=== PATIENT | female | born 1970 | race Two or more races ===

== ENCOUNTER 2016-06-20 07:35 | Inpatient (IN) | payer OTHER ==
[~2016-06-20] VITALS: Ht 152.4 cm; Wt 69.9 kg
[2016-06-20] VITALS (11 sets, daily range): BP systolic 92–171; BP diastolic 50–102
[~2016-06-20 07:35] MED LIST: Dexamethasone 4mg/ml vial ONE; GEMFIBROZIL600 MG ORAL; Glycopyrrolate 0.2mg/ml 1ml Vial ONE; LISINOPRIL20 MG ORAL; LR 1000ml ONE; Lidocaine 1% MPF 10mg/ml 5ml ONE; Magnesium Sulfate 2ml Inj ONE; Metoprolol 5mg/5ml Inj ONE; Neostigmine 1mg/ml 10ml Inj ONE; Propofol 10mg/ml 20ml IV ONE; Zemuron 50mg/5ml Inj IV ONE; ceFAZolin sod 2 GM in D5W 110 ML IVPB ONE; fentaNYL 100 mcg/2 mL IV ONE; fentaNYL 250mcg/5ml ONE
--- NOTE | 2016-06-20 08:33 | Anethesia Preoperative Eval ---
Anesthesia Pre-op PMH/ROS General Date of Evaluation: Jun 20, 2016 Time of Evaluation: 10:21 Anesthesiologist: Robert ASA Score: ASA 3 Mallampati Score Class I : Soft palate, uvula, fauces, pillars visible Class II: Soft palate, uvula, fauces visible Class III: Soft palate, base of uvula visible Class IV: Only hard plate visible Mallampati Classification: Class II Surgeon: Dieudonne Diagnosis: Neck Pain Surgical Procedure: ADR C5-6 Anesthesia History: none Family History: no anesthesia problems Allergies: Coded Allergies: No Known Allergies (Unverified , 06/18/16) Medications: see eMAR Past Medical History Cardiovascular: Reports: HTN, other - HL Gastrointestinal/Genitourinary: Reports: GERD Neurologic/Psychiatric: Reports: depression/anxiety Endocrine: Reports: DM Other: obesity - BMI 30 PSxH Narrative: Breast Implants, L Arm Sx Anesthesia Pre-op Phys. Exam Physician Exam Last Vital Signs Date Time Temp Pulse Resp B/P Pulse Ox O2 Delivery O2 Flow Rate FiO2 06/20/16 08:16 97.4 81 18 138/87 98 Room Air Constitutional: NAD Neurologic: CN 2-12 intact Cardiovascular: RRR Respiratory: CTA Gastrointestinal: S/NT/ND Airway Exam Mallampati Score: Class II MO: limited ROM: limited Teeth: intact Anesthesia Pre-op A/P Risk Assessment & Plan Assessment: ASA 3 Plan: GA, BIS, Glidescope Status Change Before Surgery: No Pre-Antibiotics Dru Grams Ancef IV Given Within 1 Hr of Incision: Yes Time Given: 10:41 Reg Jones MD Jun 20, 2016 08:33
[2016-06-20] MEDS ORDERED: LR 1000ml 1,000 ML IVLG SCH (08:34)
--- NOTE | 2016-06-20 08:36 | Immediate Post-Op Evaluation ---
Immediate Post-Op Evalulation Immediate Post-Op Evalulation Procedure: ADR C5-6 Date of Evaluation: Jun 20, 2016 Time of Evaluation: 12:52 IV Fluids: 1100 LR Blood Products: 0 Estimated Blood Loss: 50 Urinary Output: 500 Blood Pressure Systolic: 92 Blood Pressure Diastolic: 58 Pulse Rate: 85 Respiratory Rate: 16 O2 Sat by Pulse Oximetry: 99 Temperature (Fahrenheit): 97.1 Pain Score (1-10): 3 Nausea: No Vomiting: No Complications 0 Patient Status: awake, reacts, patent, extubated, none Hydration Status: adequate Dru Grams Ancef IV Given Within 1 Hr of Incision: Yes Reg Jones MD Jun 20, 2016 08:36
[2016-06-20] MEDS ORDERED: DIURIL25 MG ORAL (08:44)
[2016-06-20] MEDS ORDERED: CARISOPRODOL350 MG ORAL (08:44)
[2016-06-20] MEDS ORDERED: MECLIZINE HCL25 M1 ORAL (08:44)
[2016-06-20] MEDS ORDERED: AMITRIPTYLINE25 MG ORAL (08:44)
[2016-06-20] MEDS ORDERED: VOLTAREN25 MG PO (08:44)
[2016-06-20] MEDS ORDERED: NORVASC5 MG ORAL (08:44)
[2016-06-20] MEDS ORDERED: FORTAMET500 MG PO (08:44)
[2016-06-20] MEDS ORDERED: Labetalol 5mg/ml 20ml vial IV PRN (08:45)
[2016-06-20] MEDS ORDERED: Hydromorphone 0.5mg/0.5ml inj IVP PRN (08:45)
[2016-06-20] MEDS ORDERED: Ketorolac 60mg Inj IV PRN (08:45)
[2016-06-20] MEDS ORDERED: Oxycodone/Acetaminophen 5-325 ORAL PRN (08:45)
[2016-06-20] MEDS ORDERED: Atropine Inj 1mg/10ml Syr IV PRN (08:45)
[2016-06-20] MEDS ORDERED: DiphenhydrAMINE 50mg/ml Inj IVP PRN (08:45)
[2016-06-20] MEDS ORDERED: Midazolam 2mg/2ml Inj IVP PRN (08:45)
[2016-06-20] MEDS ORDERED: Norco 7.5mg/325mg tab ORAL PRN ×3 (08:45→10:00)
[2016-06-20] MEDS ORDERED: LORazepam Inj 2mg/ml 1ml IV PRN (08:45)
[2016-06-20] MEDS ORDERED: Meperidine 25mg/ml Inj IV PRN (08:45)
[2016-06-20] MEDS ORDERED: fentaNYL 100 mcg/2 mL IV PRN (08:45)
[2016-06-20] MEDS ORDERED: Norco 5mg/325mg tab ORAL PRN ×2 (08:45→10:00)
[2016-06-20] MEDS ORDERED: Ketorolac 30mg Inj IV PRN (08:45)
[2016-06-20] MEDS ORDERED: Metoclopramide 10mg/2ml Inj IVP PRN ×2 (08:45→10:00)
[2016-06-20] MEDS ORDERED: Acetaminophen (Non formulary) 1,000 MG/100 ML ML IV ONE (09:30)
--- NOTE | 2016-06-20 09:56 | Pre-Procedure Note/Attestation ---
Pre-Procedure Note/Attestation Complete Prior to Procedure Planned Procedure: not applicable Procedure Narrative: Artificial disc replacement C56 Indications for Procedure Pre-Operative Diagnosis: herniated disc of C56 Attestation I attest that I discussed the nature of the procedure; its benefits; risks and complications; and alternatives (and the risks and benefits of such alternatives ), prior to the procedure, with the patient (or the patient's legal hvac sales representative). I attest that, if there was a reasonable possibility of needing a blood transfusion, the patient (or the patient's legal hvac sales representative) was given the [facility] standardized written summary, pursuant to the Alireza Jessica Blood Safety Act ([place] Health and Safety Code # 1645, as amended). I attest that I re-evaluated the patient just prior to the surgery and that there has been no change in the patient's H&P, except as documented below: RAQUEL PULIDO Jun 20, 2016 09:56
--- NOTE | 2016-06-20 09:57 | Brief Operative Note ---
Immediate Post Operative Note Operative Note Chief Complaint: neck pain left arm radic Pre-op Diagnosis: herniated disc of C56 Procedure: Artificial disc replacement C56 Post-op Diagnosis: same as pre-op Findings: consistent w/pre-op dx studies Surgeon: Dieudonne Piano Instructor: Tia Anesthesia: general Specimen: none Complications: none Condition: stable Estimated Blood Loss: minimal Implant(s) used?: Yes - Prodisc C sz5 RAQUEL PULIDO Jun 20, 2016 09:57
[2016-06-20] MEDS ORDERED: HYDROmorphone 1mg/ml Carpuject SUBQ PRN (10:00)
[2016-06-20] MEDS ORDERED: Naloxone 0.4mg/ml Inj IVP PRN (10:00)
[2016-06-20] MEDS ORDERED: Milk of Magnesia 30ml Ud ORAL PRN (10:00)
[2016-06-20] MEDS ORDERED: Vancomycin 1gm inj IVPB ONE (10:16)
[2016-06-20] MEDS ORDERED: Thrombin 5000 units TOPIC ONE (10:16)
[2016-06-20] MEDS ORDERED: Bacitracin 50000 Units Vial ONE (10:17)
[2016-06-20] MEDS: HYDROmorphone 1mg/ml Carpuject IVP PRN ×2 (16:15→21:13)
--- NOTE | 2016-06-20 17:01 | Diagnostic Imaging Report ---
Indications: Neck pain, artificial disc replacement Technique: Procedure including fluoroscopy performed by Dr. Bro. Portable intraoperative spot film images of cervical spine performed in AP and lateral projections. Findings: Comparison: None Initial image demonstrates tip of localizing needle overlying the anterior aspect of the C5-6 disc space. Subsequent images demonstrate placement of disc prosthesis within the same disc space, well centered. Prevertebral soft tissues at this level are mildly swollen. IMPRESSION: Surgical changes as described
[2016-06-20] MEDS: NS w/KCl 20mEq 1,000 ML IV SCH (17:53)
[2016-06-20] MEDS: ceFAZolin sod 1 GM in NS 55 ML IV SCH (17:54)
[2016-06-20] MEDS: Dexamethasone 4mg/ml vial IVP SCH (17:57)
[2016-06-20] MEDS: Docusate 100mg tablet ORAL SCH (17:57)
--- NOTE | 2016-06-20 20:54 | Consultation ---
History of Present Illness General Date patient seen: Jun 20, 2016 Time patient seen: 20:50 Chief Complaint: neck pain Referring physician: Liu Bro MD Reason for Consultation: medical management Present Illness HPI 46 y/o woman with hx of cervical stenosis, s/p C5/6 ADR without periop or postop complications. No chest pain or dyspnea, no n/v, postop pain well controlled. Allergies: Coded Allergies: No Known Allergies (Unverified , 06/18/16) Medication History Scheduled Amitriptyline HCl (Elavil*), 25 MG ORAL BEDTIME, (Reported) Amlodipine Besylate (Norvasc), 5 MG ORAL DAILY, (Reported) Carisoprodol* (Carisoprodol*), 350 MG ORAL PRN, (Reported) Diclofenac Sod (Diclofenac Sodium), 75 MG PO BID, (Reported) Gemfibrozil (Gemfibrozil*), 600 MG ORAL DAILY, (Reported) Hydrochlorothiazide (Hydrochlorothiazide), 25 MG ORAL DAILY, (Reported) Lisinopril (Lisinopril*), 20 MG ORAL DAILY, (Reported) Meclizine Hcl (Meclizine Hcl), 25 MG ORAL THREE TIMES A DAY, (Reported) Metformin Hcl (Fortamet), 500 MG PO DAILY, (Reported) Patient History History Provided By: Patient Healthcare decision maker LUIS FELIPE GARCIA- Resuscitation status Full Code Advanced Directive on File Past Medical/Surgical History Past Medical/Surgical History: (1) Diabetes type 2, controlled (2) HTN (hypertension) (3) HNP (herniated nucleus pulposus), cervical Family History Family History: (1) Family history in first degree relatives is unremarkable Social History Social History: (1) No significant social history Review of Systems ROS Narrative CONSTITUTIONAL: No weight loss, fever, chills, weakness or fatigue. HEENT: Eyes: No visual loss, blurred vision, double vision or yellow sclerae. Ears, Nose, Throat: No hearing loss, sneezing, congestion, runny nose or sore throat. SKIN: No rash or itching. CARDIOVASCULAR: No chest pain, chest pressure or chest discomfort. No palpitations or edema. RESPIRATORY: No shortness of breath, cough or sputum. GASTROINTESTINAL: No anorexia, nausea, vomiting or diarrhea. No abdominal pain or blood. NEUROLOGICAL: No headache, dizziness, syncope, paralysis, ataxia, numbness or tingling in the extremities. No change in bowel or bladder control. MUSCULOSKELETAL: No muscle, back pain, joint pain or stiffness. +neck pain HEMATOLOGIC: No anemia, bleeding or bruising. LYMPHATICS: No enlarged nodes. No history of splenectomy. PSYCHIATRIC: No history of depression or anxiety. ENDOCRINOLOGIC: No reports of sweating, cold or heat intolerance. No polyuria or polydipsia. ALLERGIES: No history of asthma, hives, eczema or rhinitis. Physical Exam Physical Exam Narrative General: alert, cooperative, no distress, appears stated age Head: normocephalic, without obvious abnormality, atraumatic Eyes: conjunctivae/corneas clear. PERRL, EOM's intact Throat: lips, mucosa, and tongue normal. MMM Neck: incision c/d/i Lungs: clear to auscultation bilaterally Heart: regular rate and rhythm, S1, S2 normal, no murmur, click, rub or gallop Abdomen: soft, non-tender, non-distended, bowel sounds normal; no masses or organomegaly Extremities: extremities normal, atraumatic, no cyanosis or edema Pulses: 2+ and symmetric Skin: skin color, texture, turgor normal; no rashes or lesions Neurologic: grossly normal, no focal deficits Last 24 Hour Vital Signs Date Time Temp Pulse Resp B/P Pulse Ox O2 Delivery O2 Flow Rate FiO2 06/20/16 16:00 96.8 84 18 125/82 96 Nasal Cannula 2.0 06/20/16 13:54 98.0 70 20 146/84 100 Nasal Cannula 2.0 06/20/16 13:45 74 20 154/98 100 Nasal Cannula 2.0 06/20/16 13:34 76 20 171/102 100 Nasal Cannula 2.0 06/20/16 13:34 76 171/102 06/20/16 13:15 70 20 161/99 100 Simple Mask 8.0 06/20/16 13:00 73 20 124/79 99 Simple Mask 8.0 06/20/16 12:51 72 20 103/60 98 Simple Mask 8.0 06/20/16 12:46 78 20 99/50 95 Simple Mask 8.0 06/20/16 12:42 85 16 99 06/20/16 12:41 97.1 78 20 92/58 95 Simple Mask 8.0 06/20/16 09:30 97.1 06/20/16 08:16 97.4 81 18 138/87 98 Room Air Height (Feet): 5 Height (Inches): 0.00 Weight (Pounds): 154 Medications Current Medications Medications (Trade) Dose Ordered Sig/Kareen Route PRN Reason Start Time Stop Time Status Last Admin Dose Admin Acetaminophen (Tylenol) 650 mg Q4H PRN ORAL headache or temp>101 06/20/16 10:00 07/20/16 09:59 Acetaminophen/ Hydrocodone Bitart ([place] 5/325) 1 tab Q3H PRN ORAL pain score 1-3 06/20/16 10:00 06/27/16 09:59 Acetaminophen/ Hydrocodone Bitart ([place] 7.5/325) 1 ea Q3H PRN ORAL pain score 4-6 06/20/16 10:00 06/27/16 09:59 Acetaminophen/ Hydrocodone Bitart ([place] 7.5/325) 2 ea Q3H PRN ORAL pain scale 7-10 06/20/16 10:00 06/27/16 09:59 Amitriptyline HCl (Elavil) 25 mg BEDTIME ORAL 06/20/16 21:00 07/20/16 20:59 Amlodipine Besylate (Norvasc) 5 mg DAILY ORAL 06/21/16 09:00 07/21/16 08:59 Carisoprodol (Soma) 350 mg TIDPRN PRN ORAL SPASM 06/20/16 10:00 07/20/16 09:59 Cefazolin Sodium/ Sodium Chloride (Ancef/Sodium Chloride) 55 ml @ 110 mls/hr Q8H IV 06/20/16 18:30 06/21/16 10:59 06/20/16 17:54 Dexamethasone Sodium Phosphate (Decadron 4mg/ml vial) 4 mg Q6HR IVP 06/20/16 18:00 06/21/16 12:01 06/20/16 17:57 Dextrose (Dextrose 50%) STAT PRN IV Hypoglycemia 06/20/16 19:15 07/20/16 19:14 Docusate Sodium (Colace) 100 mg TWICE A DAY ORAL 06/20/16 18:00 07/20/16 17:59 06/20/16 17:57 Gemfibrozil (Lopid) 600 mg DAILY ORAL 06/20/16 21:00 07/20/16 20:59 Hydrochlorothiazide (Hydrodiuril) 25 mg DAILY ORAL 06/21/16 09:00 07/21/16 08:59 Hydromorphone HCl (Dilaudid) 1 mg Q4H PRN SUBQ Mild Pain (Pain Scale 1-3) 06/20/16 10:00 06/27/16 09:59 Hydromorphone HCl (Dilaudid) 2 mg Q3H PRN SUBQ Severe Pain (Pain Scale 7-10) 06/20/16 10:00 06/27/16 09:59 Hydromorphone HCl (Dilaudid) 2 mg Q4H PRN SUBQ Moderate Pain (Pain Scale 4-6) 06/20/16 10:00 06/27/16 09:59 Hydromorphone HCl 1 mg 1 mg Q2H PRN IVP Breakthrough Pain 06/20/16 10:00 06/27/16 09:59 06/20/16 16:15 Insulin Aspart (NovoLOG) BEFORE MEALS AND HS SUBQ 06/20/16 21:00 07/20/16 20:59 Lisinopril (Prinivil) 20 mg DAILY ORAL 06/21/16 09:00 07/21/16 08:59 Magnesium Hydroxide (Mom) 30 ml QIDPRN PRN ORAL Constipation 06/20/16 10:00 07/20/16 09:59 Metoclopramide HCl (Reglan) 10 mg Q6H PRN IVP Nausea & Vomiting 06/20/16 10:00 07/20/16 09:59 06/20/16 17:59 Naloxone HCl (Narcan) 0.1 mg PRN PRN IVP RR<12/min, pt unarousable 06/20/16 10:00 07/20/16 09:59 Ondansetron HCl (Zofran) 4 mg Q6H PRN IVP Nausea & Vomiting 06/20/16 10:00 07/20/16 09:59 06/20/16 16:15 Prochlorperazine (Compazine) 10 mg Q6H PRN IVP Nausea & Vomiting 06/20/16 10:00 07/20/16 09:59 Sodium Chloride (NS w/KCl 20mEq) 1,000 ml @ 100 mls/hr Q10H IV 06/20/16 17:00 07/20/16 16:59 06/20/16 17:53 Temazepam (Restoril) 15 mg HSPRN PRN ORAL Insomnia 06/20/16 10:00 06/27/16 09:59 Assessment/Plan Problem List: (1) HNP (herniated nucleus pulposus), cervical Assessment & Plan: - s/p C5/6 ADR - encourage mobilization/ambulation - encourage incentive spirometry to optimize pulmonary hygiene - DVT/GI prophylaxis as appropriate - ctm CBC and hemodynamics - ctm electrolytes, adjust/replete prn - PT/OT/ST, if indicated - pain control, supportive care, bowel regimen - DC planning ICD Codes: M50.20 - Other cervical disc displacement, unspecified cervical region SNOMED: [id number] BE JOHNSON Jun 20, 2016 20:54
[2016-06-20] MEDS: NovoLOG Insulin Flexpen SUBQ SCH (22:43)
[2016-06-21] VITALS: BP 113/77
[2016-06-21] MEDS: Dexamethasone 4mg/ml vial IVP SCH ×3 (00:11→11:54)
[2016-06-21 04:00] VITALS: BP 109/68
[2016-06-21] MEDS: ceFAZolin sod 1 GM in NS 55 ML IV SCH ×2 (04:13→10:30)
[2016-06-21] MEDS: NS w/KCl 20mEq 1,000 ML IV SCH (04:14)
[2016-06-21] MEDS: NovoLOG Insulin Flexpen SUBQ SCH ×2 (07:18→12:03)
[2016-06-21 08:00] VITALS: BP 143/86
--- NOTE | 2016-06-21 08:19 | 48 Hour Post Anesthesia Eval ---
Post Anesthesia Evaluation Procedure: ADR C5-6 Date of Evaluation: Jun 21, 2016 Time of Evaluation: 06:30 Blood Pressure Systolic: 109 0: 68 Pulse Rate: 88 Respiratory Rate: 18 Temperature (Fahrenheit): 97.9 O2 Sat by Pulse Oximetry: 95 Airway: patent Nausea: No Vomiting: No Pain Intensity: 2 Hydration Status: adequate Cardiopulmonary Status: at baseline Mental Status/LOC: patient returned to baseline Post-Anesthesia Complications: 0 Follow-up care needed: N/A - further care as per primary team MISSAEL SIU M.D. Jun 21, 2016 08:19
[2016-06-21] MEDS: Docusate 100mg tablet ORAL SCH (08:54)
[2016-06-21] MEDS ORDERED: Lisinopril 20mg tab ORAL SCH (09:00)
[2016-06-21] MEDS ORDERED: Tubing IV Secondary IV ONE (10:01)
[2016-06-21 12:02] VITALS: BP 129/10
--- NOTE | 2016-06-21 12:07 | Discharge Summary ---
Discharge Summary Hospital Course Date of Admission Jun 20, 2016 at 07:35 Date of Discharge Jun 21, 2016 Admitting Diagnosis Cervical spine stenosis Reason for Hospitalization: cervical spine surgery HPI Alma Mercado is a 46 year old female who was admitted on Jun 20, 2016 at 07: 35 for Cervical Herniated Disc Consultations Spine surgery Procedures See operative reports Hospital Course 46 y/o female with hx of cervical spine stenosis s/p cervical spine surgery without complications. once pain controlled and able to ambulate was dced home and will f/u with Dr. Bro in a week Discharge Medications Continued Medications: Amitriptyline HCl (Elavil*) 25 Mg Tablet 25 MG ORAL BEDTIME, TAB Amlodipine Besylate (Norvasc) 5 Mg Tablet 5 MG ORAL DAILY, TAB Carisoprodol* (Carisoprodol*) 350 Mg Tablet 350 MG ORAL PRN, TAB Diclofenac Sod (Diclofenac Sodium) 25 Mg Tablet.dr 75 MG PO BID, TAB Gemfibrozil (Gemfibrozil*) 600 Mg Tablet 600 MG ORAL DAILY, TAB 0 Refills Hydrochlorothiazide (Hydrochlorothiazide) 50 Mg Tablet 25 MG ORAL DAILY, #10 TAB 0 Refills Lisinopril (Lisinopril*) 20 Mg Tablet 20 MG ORAL DAILY, TAB Meclizine Hcl (Meclizine Hcl) 25 Mg Tab.chew 25 MG ORAL THREE TIMES A DAY, TAB Metformin Hcl (Fortamet) 500 Mg Tab.er.24 500 MG PO DAILY, TAB Discharge Condition Upon Discharge: stable Discharge Disposition Patient was discharged to Home (01) Discharge Diagnoses: (1) HNP (herniated nucleus pulposus), cervical (2) Diabetes type 2, controlled (3) HTN (hypertension) BE JOHNSON Jun 21, 2016 12:07
--- NOTE | 2016-06-21 21:08 | Operative Note - Dictated ---
DATE OF OPERATION: 06/20/2016 SURGEON: Liu Bro MD, orthopedic spine surgeon. E[employer]MENT[employer] SCHOOL COUNSELOR SURGEON: Mervin Weber M.D. PREOPERATIVE DIAGNOSES: 1. Intractable neck pain. 2. Radiculopathy. 3. Herniation, C5-C6. 4. Neural foraminal stenosis C5-C6. 5. Stenosis. POSTOPERATIVE DIAGNOSES: 1. Intractable neck pain. 2. Radiculopathy. 3. Herniation, C5-C6. 4. Neural foraminal stenosis C5-C6. 5. Stenosis. PROCEDURES PERFORMED: 1. Anterior cervical discectomy and artificial disc replacement of C5-C6 using a Synthes Prodisc C size 5 height. 2. Use of intraoperative microscope. 3. Motor evoked potential monitoring. 4. Somatosensory evoked potential monitoring. 5. Supervision and interpretation of fluoroscopy. COMPLICATIONS: None. ANESTHESIA: General. ESTIMATED BLOOD LOSS: Less than 100 mL. INDICATIONS FOR SURGERY: This patient is a 46-year-old female who has a history of diagnoses as listed above. As of result of this, the patient sustained intractable neck pain, radiculopathy, herniation, C5-C6, neural foraminal stenosis C5-C6 and stenosis. We tried a course of conservative management but despite this course there was still a significant component of persistent, recalcitrant neck pain and arm pain. The MRI demonstrated significant neural foraminal compromise secondary to disc herniations at C5-C6. We had a long discussion with Alma regarding the risks and benefits of surgery. Our discussion included but was not limited to nonoperative management, chiropractic management, another epidural steroid injection as well definitive management in the form of surgery. We recommended anterior cervical discectomy and artificial disk replacement of C5-C6 using a Synthes Prodisc C size 5 height as final definitive management. We reviewed the risks and benefits of surgery with the patient. Our discussion included a comprehensive review of the clinical issues and the nature of the clinical decision. We reviewed the alternatives, including doing nothing. The patient elected to proceed accordingly with anterior cervical discectomy and artificial disk replacement of C5-C6 using a Synthes Prodisc C size 5 height. We had a long discussion regarding the risks, alternatives and benefits of surgery. Our description of the risks included a discussion in person as well as a signed consent which detailed all pertinent risks from the procedure itself. Briefly, our discussion included but was not limited to infection, bleeding, pseudarthrosis, spinal cord injury, neurovascular injury, dural tear, CSF leak, neuropathy, paralysis, permanent weakness/drop foot/drop arm, paresthesias, blindness, palsy and weakness. The patient understood there may be a need for a revision surgery or additional procedures. Approach-related complications including dysphonia, dysphagia, blindness, permanent vocal cord and neural injury, hematoma, swallowing and breathing difficulty. Medical complications were reviewed including liver, kidney, shock, cardiopulmonary failure, anesthesia complications including , swelling, damage to the musculature, larynx/voice injury or loss, esophagus/throat, trachea, blood vessels and muscles/muscular sprain and lungs/pneumothorax during this surgical procedure; injury to deeper structures may be temporary or permanent. After this review of risks, the patient understood these and elected to proceed. A written and verbal consent was given. We discussed the pros and cons of all the alternatives. We discussed the uncertainties associated with the decision. Afterwards I assessed the patient's understanding and explored their preferences. All questions were answered and no guarantees were given. Medical clearance was obtained prior to surgery. INTRAOPERATIVE FINDINGS: A broad based disc herniation which was found posterior to a tear/rent in the posterior longitudinal ligament at C5-C6 causing a considerable amount of neural foraminal stenosis with significant encroachment on the neural foramina and spinal cord. DESCRIPTION OF PROCEDURE: Under the benefit of general endotracheal anesthesia and with the assistance of the entire operative team, the patient was moved from the [place] onto the operative table in the supine position. The head was secured and carefully positioned appropriately. Bilateral arms were secured with GelPads and foam and all bony prominences were padded. For the bilateral lower extremities SCD and ANNA hose were placed for DVT prophylaxis. A surgical timeout was called which corroborated our planned procedure of anterior cervical discectomy and artificial disc replacement of C5-C6 using a Synthes Prodisc C size 5. Preoperative antibiotics were administered within 30 minutes of the incision for antibiotic prophylaxis. Using lateral fluoroscopic radiography, the operative levels were delineated. Next the wound was prepped and draped with Chlorhexidine and sterile drapes. An incision was based on lateral fluoroscopy and we centered our incision at the C5-C6 interspace and next using a standard Angel-Clarke anterior based approach the incision was taken down through the skin and subcutaneous tissues until the vertebral bodies and their corresponding disc spaces were visualized. A needle was placed into the interspace to confirm placement of the operative interspace and we performed the remainder of procedure under microscopic visualization. Next, using a bipolar and Bovie cautery to ensure meticulous hemostasis, the longus colli was mobilized bilaterally and retractors were placed deep to the longus colli bilaterally to address retraction. Next we turned our attention to the radical anterior discectomy. This was initially performed at C5-C6. First by using a 15 blade scalpel followed by narrow pituitaries and a Microsect 5-B curette was used to denude the endplate of all cartilaginous tissue. Next using a [employer] AM8 drillbit the endplates were denuded of cartillage in a layer by layer fashion, and ultimately the posterior uncinate joints bilaterally and posterior osteophytic lips and margins causing central and lateral impingement were carefully denuded until visualization of the posterior longitudinal ligament was possible. An endplate preparation was performed in the exact same fashion using an intervertebral obiee consultant, sequential distraction was obtained throughout the disc space. We saw a tear/rent in the PLL and this was carefully mobilized and dissected using a Microsect 1-B curet until we visualized a broad-based disc herniation with compression of the spinal cord as well as neural foramina right more than left-sided. This neural foraminal compression was carefully resected using a Kerrison-1 and Kerrison-2 rongeurs until complete decompression of the spinal cord was visualized and complete decompression of the neural foramina and nerve root therein as well as the axilla and lateral margin of the nerve root was visualized and subsequently completely decompressed. The family was notified at one hour intervals throughout the procedure to provide for consistent updates. We next turned our attention towards trialing our implant within the disc space. We initially tried size 5 and the Prodisc Cervical spacer fit well in regards to depth and width. This implant was opened and prepared. Next under direct visualization I confirmed excellent fit in respect to the anterior and posterior vertebral bodies, the uncinate joints and in regards to toggle. Once satisfied with this placement on serial AP and lateral fluoroscopy I turned my attention towards cutting our stephy. These were cut in the bones using a reciprocating drill and afterwards all free fragments of bone were irrigated. Next FloSeal was placed into the interspace and the implant was inserted using fluoroscopic guidance. Next the Synthes Prodisc C size 5 ADR was then carefully advanced and secured into the intervertebral space under direct visualization and with supervision of AP and lateral fluoroscopic views. After a finger sweep we confirmed removal of all sponges. The retractor was removed and we next turned our attention to meticulous hemostasis with FloSeal and bipolar cautery. After the sponge and needle count was again found to be correct with our second count, we next turned our attention to closure. The wound was again copiously irrigated with antibiotic impregnated saline. Closure consisted of 4-0 clear nylon for the platysma, and 6-0 clear nylon for the superficial skin. Final skin closure and dressings consisted of Dermabond. Prior to final closure, a final radiograph was obtained which demonstrated the hardware is intact with excellent position throughout. The patient tolerated the procedure well. The patient was carefully extubated after the conclusion of surgery. We discussed the findings of the surgery with the family upon completion of the case. At this point the patient was transferred to the spine floor for further observation. Liu Bro M.D. DR: KAYLAH JOB#: [id number] CC: PIPO
--- NOTE | 2016-06-22 02:58 | Discharge Summary ---
DATE OF ADMISSION: 06/20/2016 DATE OF DISCHARGE: 06/21/2016 PROCEDURE PERFORMED DURING ADMISSION: Artificial disk replacement of C56. REASON FOR ADMISSION: C5-C6 herniation. HOSPITAL COURSE/TREATMENT RENDERED: DISCHARGE PHYSICAL EXAM: 1. Patient was ambulating with and without the assistance of physical therapy 2. Prior to discharge home incision was clean and dry with minimal swelling 3. Follows commands 4. Alert and oriented 5. Hernandez discontinued, voiding 6. Incentive spirometer at bedside 7. IVF hep locked MOTOR: Demonstrates expected postoperative bulk and tone. Moves biceps, triceps, and deltoid musculature on command. Moves hip flexors, quadriceps, tibialis anterior, EHL, gastrocsoleus musculature on command as well. TREATMENT RENDERED: 1. Daily nursing care 2. Physical Therapy 3. Occupational Therapy 4. Intravenous medications 5. Oral medications 6. Daily postoperative examinations by Spine surgery team CONDITION OF PATIENT ON DISCHARGE: The condition on discharge is stable for discharge to home DISCHARGE INSTRUCTIONS: Our specific instructions relating to physical activity, medications diet and follow-up care are detailed in our standard operative folder and were given to this patient prior to surgery. We will however summarize these briefly as stated below. Regarding physical activity we would like the patient to limit their flexion, extension and rotation. We also require a limitation on their bending lifting and twisting. All medication has been called in prior to surgery to their pharmacy of choice. They can resume their regular diet once tolerated. We would like them to shower and limit soaking the wound in a tub/Jacuzzi/the ocean for a period of one month or until the incision is completely healed. We will have them follow up in our office in three weeks time for their regularly scheduled appointment. They understand to call our office tomorrow to schedule the time for their three week followup appointment. The patient will notify us should they experience any increase in the severity of pain, redness/swelling/ or drainage from their incision. Liu Bro M.D. DR: Julio César JOB#: [id number] CC: PIPO
== END 2016-06-21 15:19 | disposition home or self-care (01) | DRG 518 ==
LOC: SDSOVERFLO 07:35 → 3E 14:00
PROC: 0RB30ZZ Excision of Cervical Vertebral Disc, Open Approach (ICD-10-PCS; principal; 2016-06-20 11:00)
PROC: 01N10ZZ Release Cervical Nerve, Open Approach (ICD-10-PCS; principal; 2016-06-20 11:00)
PROC: 0RR30JZ Replacement of Cervical Vertebral Disc with Synthetic Substitute, Open Approach (ICD-10-PCS; principal; 2016-06-20 11:00)
DX: M50.122 Cervical disc disorder at C5-C6 level with radiculopathy (principal); M48.02 Spinal stenosis, cervical region; I10 Essential (primary) hypertension; E78.5 Hyperlipidemia, unspecified; F41.9 Anxiety disorder, unspecified; V89.2XXS Person injured in unspecified motor-vehicle accident, traffic, sequela
CPT/HCPCS: 36415; 72040; 76000; 82962; 86850; 86900; 86901; 87081; 94003; 94150; J1815; J2405; J2710; J2765

== ENCOUNTER 2020-01-27 05:14 | Inpatient (IN) | payer OTHER ==
[~2020-01-27] VITALS: Ht 144.8 cm; Wt 72.6 kg
[2020-01-27] VITALS (10 sets, daily range): BP systolic 145–166; BP diastolic 75–99
[~2020-01-27 05:14] MED LIST changes: +AMITRIPTYLINE25 MG ORAL; +ATORVASTATIN CA40 MG ORAL; +CARISOPRODOL350 MG ORAL; +CARVEDILOL3.125 MG ORAL; +CATAPRES0.2 MG ORAL; +DIURIL25 MG ORAL; +DOCUSATE SODIU100 MG ORAL; -Dexamethasone 4mg/ml vial ONE; +FORTAMET500 MG PO; +GLIMEPIRIDE1 MG ORAL; -Glycopyrrolate 0.2mg/ml 1ml Vial ONE; +KLONOPIN1 MG ORAL; -LR 1000ml ONE; -Lidocaine 1% MPF 10mg/ml 5ml ONE; +MECLIZINE HCL25 M1 ORAL; -Magnesium Sulfate 2ml Inj ONE; -Metoprolol 5mg/5ml Inj ONE; +NESINA6.25 MG PO; +NORVASC5 MG ORAL; +NUCYNTA50 MG PO; -Neostigmine 1mg/ml 10ml Inj ONE; +PANTOPRAZOLE SO40 MG ORAL; -Propofol 10mg/ml 20ml IV ONE; +QUETIAPINE FUMA50 MG ORAL; +SERTRALINE HCL100 MG PO; +VOLTAREN25 MG PO; -Zemuron 50mg/5ml Inj IV ONE; -ceFAZolin sod 2 GM in D5W 110 ML IVPB ONE; -fentaNYL 100 mcg/2 mL IV ONE; -fentaNYL 250mcg/5ml ONE
[2020-01-27] MEDS ORDERED: Thrombin 5000 units TOPIC ONE (06:46)
[2020-01-27] MEDS ORDERED: Bacitracin 50000 Units Vial ONE (06:47)
[2020-01-27] MEDS ORDERED: Gelfoam Size TOPIC ONE (06:47)
--- NOTE | 2020-01-27 06:50 | Anethesia Preoperative Eval ---
Anesthesia Pre-op PMH/ROS General Date of Evaluation: Jan 27, 2020 Time of Evaluation: 07:06 Anesthesiologist: Robert ASA Score: ASA 3 Mallampati Score Class I : Soft palate, uvula, fauces, pillars visible Class II: Soft palate, uvula, fauces visible Class III: Soft palate, base of uvula visible Class IV: Only hard plate visible Mallampati Classification: Class II Surgeon: Dieudonne Diagnosis: Neck Pain Surgical Procedure: ACDF C4-5 Anesthesia History: none Social History: drug use - Chronic Pain Family History: no anesthesia problems Allergies: Coded Allergies: MORPHINE (Verified Adverse Reaction, Intermediate, headache, 01/26/20) Medications: see eMAR Patient NPO?: Yes Past Medical History Cardiovascular: Reports: HTN, other - HL Gastrointestinal/Genitourinary: Reports: GERD Neurologic/Psychiatric: Reports: depression/anxiety Endocrine: Reports: DM PSxH Narrative: Neck SX, L Hand and Arm SX, Breast Implants Anesthesia Pre-op Phys. Exam Physician Exam Last Vital Signs Date Time Temp Pulse Resp B/P (MAP) Pulse Ox O2 Delivery O2 Flow Rate FiO2 01/27/20 06:02 97.1 79 18 150/95 (113) 96 Constitutional: NAD Neurologic: CN 2-12 intact Cardiovascular: RRR Respiratory: CTA Gastrointestinal: S/NT/ND Airway Exam Mallampati Score: Class II MO: full ROM: limited Teeth: missing, intact Anesthesia Pre-op A/P Labs Chemistry Test 01/27/20 05:50 POC Whole Blood Glucose 130 MG/DL (74-106) H Risk Assessment & Plan Assessment: ASA 3 Plan: GA, SED, GlideScope Status Change Before Surgery: No Pre-Antibiotics Dru Grams Ancef IV Given Within 1 Hr of Incision: Yes Time Given: 07:31 Reg Jones MD Jan 27, 2020 06:50
[2020-01-27] MEDS ORDERED: Sodium Chloride 10ml vial INJ ONE (06:51)
[2020-01-27] MEDS ORDERED: Lidocaine 1% Plain 30 ml INJ ONE ×2 (06:51→08:45)
[2020-01-27] MEDS ORDERED: Lidocaine 1% MPF 10mg/ml 5ml ONE (06:51)
[2020-01-27] MEDS ORDERED: Rocuronium Bromide 50mg/5ml Inj IV ONE (06:55)
[2020-01-27] MEDS ORDERED: Acetaminophen (Non formulary) 100 ML IV ONE (07:00)
[2020-01-27] MEDS ORDERED: ceFAZolin sod 2 GM in NS 55 ML IVPB ONE (07:00)
[2020-01-27] MEDS ORDERED: Labetalol 5mg/ml 20ml vial IV PRN (07:00)
[2020-01-27] MEDS ORDERED: Metoclopramide 10mg/2ml Inj IVP PRN ×2 (07:00→07:30)
[2020-01-27] MEDS ORDERED: fentaNYL 100 mcg/2 mL IV PRN (07:00)
[2020-01-27] MEDS ORDERED: DiphenhydrAMINE 50mg/ml Inj IVP PRN (07:00)
[2020-01-27] MEDS ORDERED: Meperidine 25mg/1ml Inj (FOR RIGORS ONLY) IV PRN (07:00)
[2020-01-27] MEDS ORDERED: LR 1000ml ONE (07:00)
[2020-01-27] MEDS ORDERED: Midazolam 2mg/2ml Inj IVP PRN (07:00)
[2020-01-27] MEDS ORDERED: Atropine Sulfate 0.4mg/ml inj IVP PRN (07:00)
[2020-01-27] MEDS ORDERED: LORazepam Inj 2mg/ml 1ml IV PRN (07:00)
[2020-01-27] MEDS ORDERED: LR 1000ml 1,000 ML IVLG SCH (07:00)
[2020-01-27] MEDS ORDERED: Hydromorphone 0.5mg/0.5ml inj IVP PRN (07:00)
[2020-01-27] MEDS ORDERED: oxyCODONE HCL/Acetaminophen 5/325mg ORAL PRN (07:00)
[2020-01-27] MEDS ORDERED: NS Irrig 1000ml ONE (07:00)
[2020-01-27] MEDS ORDERED: HYDROcodone/Acetamin 7.5/325 tab ORAL PRN ×3 (07:00→07:30)
[2020-01-27] MEDS ORDERED: propofoL 1,000mg/100ml IV ONE (07:00)
[2020-01-27] MEDS ORDERED: Sterile Water Irrig 1000ml IRRIG ONE (07:00)
[2020-01-27] MEDS ORDERED: HYDROcodone/Acetamin 5/325 tab ORAL PRN ×2 (07:00→07:30)
[2020-01-27] MEDS ORDERED: Ketorolac 30mg Inj IV PRN ×2 (07:00)
--- NOTE | 2020-01-27 07:17 | Pre-Procedure Note/Attestation ---
Pre-Procedure Note/Attestation Complete Prior to Procedure Planned Procedure: not applicable Procedure Narrative: cervical 45 anterior cervical discectomy and fusion Indications for Procedure Pre-Operative Diagnosis: C45 herniation Attestation I attest that I discussed the nature of the procedure; its benefits; risks and complications; and alternatives (and the risks and benefits of such alternatives), prior to the procedure, with the patient (or the patient's legal financial services sales representative). I attest that, if there was a reasonable possibility of needing a blood transfusion, the patient (or the patient's legal financial services sales representative) was given the [facility] standardized written summary, pursuant to the Alireza Jessica Blood Safety Act ([place] Health and Safety Code # 1645, as amended). I attest that I re-evaluated the patient just prior to the surgery and that there has been no change in the patient's H&P, except as documented below: Liu Bro MD Jan 27, 2020 07:17
--- NOTE | 2020-01-27 07:18 | Brief Operative Note ---
Immediate Post Operative Note Operative Note Chief Complaint: neck pain and radiculopathy Pre-op Diagnosis: C45 herniation Procedure: cervical 45 anterior cervical discectomy and fusion Post-op Diagnosis: same as pre-op Findings: consistent w/pre-op dx studies Surgeon: Dieudonne Kinesiologist: Get Anesthesiologist: Robert Anesthesia: general Specimen: none Complications: none Condition: stable Fluids: IVF Estimated Blood Loss: minimal Drains: none Implant(s) used?: Yes - nuvasive interlock c sz 5 screws 13mmx3 osteocell 1cc Liu Bro MD Jan 27, 2020 07:18
[2020-01-27] MEDS ORDERED: HYDROmorphone 1mg/ml Carpuject SUBQ PRN (07:30)
[2020-01-27] MEDS ORDERED: Chloraseptic Spray 20mL Bottle ORAL PRN (07:30)
[2020-01-27] MEDS ORDERED: Naloxone 0.4mg/ml Inj IVP PRN (07:30)
[2020-01-27] MEDS ORDERED: HYDROmorphone 1mg/ml Carpuject IVP PRN (07:30)
[2020-01-27] MEDS ORDERED: Milk of Magnesia 30ml Ud ORAL PRN (07:30)
[2020-01-27] MEDS ORDERED: Phenylephrine 10mg/ml Vial ONE (07:40)
[2020-01-27] MEDS ORDERED: fentaNYL 100 mcg/2 mL IV ONE (08:42)
[2020-01-27] MEDS ORDERED: Glycopyrrolate 0.2mg/ml 1ml Vial ONE (08:49)
--- NOTE | 2020-01-27 08:56 | Immediate Post-Op Evaluation ---
Immediate Post-Op Evalulation Immediate Post-Op Evalulation Procedure: ACDF C4-5 Date of Evaluation: Jan 27, 2020 Time of Evaluation: 09:45 IV Fluids: 1000 LR Blood Products: 0 Estimated Blood Loss: 50 Urinary Output: 0 Blood Pressure Systolic: 155 Blood Pressure Diastolic: 93 Pulse Rate: 98 Respiratory Rate: 16 O2 Sat by Pulse Oximetry: 95 Temperature (Fahrenheit): 97 Pain Score (1-10): 2 Nausea: No Vomiting: No Complications 0 Patient Status: awake, reacts, patent, extubated, none Hydration Status: adequate Dru Grams Ancef IV Given Within 1 Hr of Incision: Yes Time Given: 07:31 Reg Jones MD Jan 27, 2020 08:56
--- NOTE | 2020-01-27 08:57 | 48 Hour Post Anesthesia Eval ---
Post Anesthesia Evaluation Procedure: ACDF C4-5 Date of Evaluation: Jan 27, 2020 Time of Evaluation: 12:23 Blood Pressure Systolic: 145 0: 64 Pulse Rate: 84 Respiratory Rate: 18 Temperature (Fahrenheit): 98 O2 Sat by Pulse Oximetry: 97 Airway: patent Nausea: No Vomiting: No Pain Intensity: 2 Hydration Status: adequate Cardiopulmonary Status: Stable Mental Status/LOC: patient returned to baseline Follow-up Care/Observations: 0 Post-Anesthesia Complications: 0 Follow-up care needed: ready to discharge Reg Jones MD Jan 27, 2020 08:57
--- NOTE | 2020-01-27 11:00 | NUR ---
NURSE NOTES: Pt arrived to the floor via hospital bed , pt awake a/oX4, breaths regular unlabored on 2 NC, pt denies any pain at this time . pt has IVF on the Left hand , intact patent asymptomatic, bilateral SCD on , surgical dressing on the anterior neck , Dermabond and open to air, neural checks done and intact pt able to wiggle toes and fingers. Pt has no belongings, taken by family member , bed in low locked position, side rails upX3 , will continue to monitor
[2020-01-27] MEDS ORDERED: NS w/KCl 20mEq 1000ml 1,000 ML IV SCH (13:00)
--- NOTE | 2020-01-27 13:40 | NUR ---
PT EVALUATION NOTE Patient seen for initial evaluation. Patient is familiar with cervical spine precautions and log roll technique from previous cervical surgery. Patient is independent/supervised for all functional mobility without an AD. Skilled inpatient PT intervention not warranted, patient discharged from PT, Cathy ALVARADO notified. Addendum: 01/27/20 at 1422 by ISABELLA FARAH PT Amended: Links added.
--- NOTE | 2020-01-27 14:44 | Diagnostic Imaging Report ---
CLINICAL HISTORY: Neck pain. Fluoroscopic imaging from spinal surgery. FINDINGS: Fluoroscopy independent procedure performed for spinal surgery. 8.2 seconds of fluoroscopy time utilized by the ordering physician. Total cumulative dose is 0.7 mGy and 0.64926 mGy*m2. Total of 3 spot images are obtained. IMPRESSION: FLUOROSCOPIC IMAGING FROM SPINAL SURGERY. PLEASE SEE OPERATIVE REPORT.
--- NOTE | 2020-01-27 14:47 | Diagnostic Imaging Report ---
Indication: Neck and arm pain. Status post spinal surgery. Technique: Portable frontal and lateral views of the cervical spine Comparison: No prior diagnostic cervical spine radiographs available for comparison. Findings: There is evidence of prior surgery with artificial disc prosthesis C5-C6. There is also instrumented fusion at C4-C5 with interbody disc spacer. No acute fractures identified. Lumbar lordosis appears maintained. No spondylolisthesis is appreciated. There is lung apices grossly clear. Airway patent. IMPRESSION: Postoperative changes of the cervical spine as above.
--- NOTE | 2020-01-27 15:44 | Operative Note - Dictated ---
DATE OF OPERATION: 01/27/2020 SURGEON: Liu Bro MD, Orthopaedic Spine Surgeon. CARBONIZER TESTER: SUSY Mota. PREOPERATIVE DIAGNOSES: 1. Intractable neck pain. 2. Radiculopathy. 3. Herniation, C4-C5. 4. Neural foraminal stenosis, C4-C5. 5. Stenosis. 6. History of prior C5-C6 artificial disc replacement and prior left humerus fracture. POSTOPERATIVE DIAGNOSES: 1. Intractable neck pain. 2. Radiculopathy. 3. Herniation, C4-C5. 4. Neural foraminal stenosis, C4-C5. 5. Stenosis. 6. History of prior C5-C6 artificial disc replacement and prior left humerus fracture. PROCEDURE PERFORMED: 1. Anterior cervical discectomy and fusion of C4-C5 using NuVasive Cervical Interlock, size 6, three screws of 13 mm length, and 1 mL of Osteocel allograft bone. 2. Use of intraoperative microscope. 3. Motor evoked potential monitoring. 4. Somatosensory evoked potential monitoring. 5. Supervision and interpretation of fluoroscopy. 6. Takedown of heterotopic bone at C5-C6 artificial disc replacement. COMPLICATIONS: None. ANESTHESIA: General. ESTIMATED BLOOD LOSS: Less than 100 mL. INDICATIONS FOR SURGERY: This patient is a 49-year-old female, who has history of intractable neck pain, radiculopathy, herniation at C4-C5, neural foraminal stenosis at C4-C5, stenosis, and history of prior C5-C6 artificial disc replacement and prior left humerus fracture. We tried a course of conservative management, but despite this course, there was still a significant component of persistent, recalcitrant neck pain and arm pain. The MRI demonstrated significant neural foraminal compromise secondary to disc herniations at C4-C5. We had a long discussion with Alma regarding the risks and benefits of surgery. Our discussion included, but was not limited to nonoperative management, chiropractic management, another epidural steroid injection as well as definitive management in the form of surgery. We recommended an anterior cervical discectomy and fusion of C4-C5 as final definitive management. We reviewed the risks and benefits of surgery with the patient. Our discussion included a comprehensive review of the clinical issues and the nature of the clinical decision. We reviewed the alternatives, including doing nothing. The patient elected to proceed accordingly with anterior cervical discectomy and fusion of C4-C5. We had a long discussion regarding the risks, alternatives, and benefits of surgery. Our description of the risks included a discussion in person as well as a signed consent, which detailed all pertinent risks from the procedure itself. Briefly, our discussion included but was not limited to infection, bleeding, pseudarthrosis, spinal cord injury, neurovascular injury, dural tear, CSF leak, neuropathy, paralysis, permanent weakness/drop foot/drop arm, paresthesias, blindness, palsy, and weakness. The patient understood there may be a need for a revision surgery or additional procedures. Approach-related complications including dysphonia, dysphagia, blindness, permanent vocal cord and neural injury, hematoma, swallowing and breathing difficulty. Medical complications were reviewed including liver, kidney, shock, cardiopulmonary failure, anesthesia complications including , swelling, damage to the musculature, larynx/voice injury or loss, esophagus/throat, trachea, blood vessels and muscles/muscular sprain and lungs/pneumothorax during this surgical procedure; injury to deeper structures may be temporary or permanent. After this review of risks, the patient understood these and elected to proceed. A written and verbal consent was given. We discussed the pros and cons of all the alternatives. We discussed the uncertainties associated with the decision. Afterwards, I assessed the patient's understanding and explored her preferences. All questions were answered and no guarantees were given. Medical clearance was obtained prior to surgery. INTRAOPERATIVE FINDINGS: While performing our exposure at C4-C5, I noted at C5-C6, there to be some heterotropic bone, which may have been limiting some of the arthroplasty's range of motion, so with Midas Hank drill bit, I denuded all the overlying bone anterior to the arthroplasty and after this was performed, I sealed all the osseous surfaces with bone wax to prevent further ossification. At C4-C5, after removal of the anterior portion of the disc, I noted a large tear in the posterior longitudinal ligament in the posterior aspect of the disc. This tear was in the shape of letter L and horizontal along midline raising to vertical approximately 10 to 15 degrees tear near the left neural foramina. This tear was probed with a Microsect-1B curette, which led to discovery of nuclear fragments posterior to the ligament and encroaching on the thecal sac and spinal cord primarily on the left side. These were resected with Kerrison 1 and 2 rongeurs. I should note the disc itself was soft and spongy, the tear itself appeared acute, and not calcified or degenerated, and the edges of the tear just appeared free and mobile itself. The disc also demonstrated appropriate height. DESCRIPTION OF PROCEDURE: Under the benefit of general endotracheal anesthesia and with the assistance of the entire operative team, the patient was moved from the gurney onto the operative table in the supine position. The head was secured and carefully positioned appropriately. Bilateral arms were secured with Gel Pads and foam, and all bony prominences were padded. For the bilateral lower extremities, SCD and ANNA hose were placed for DVT prophylaxis. A surgical timeout was called, which corroborated our planned procedure of anterior cervical discectomy and fusion of C4-C5. Preoperative antibiotics were administered within 30 minutes of the incision for antibiotic prophylaxis. Using lateral fluoroscopic radiography, the operative levels were delineated. Next, the wound was prepped and draped with chlorhexidine and sterile drapes. An incision was based on lateral fluoroscopy and we centered our incision at the C4-C5 interspace and next, using a standard Angel-Clarke anterior-based approach, the incision was taken down through the skin and subcutaneous tissues until the vertebral bodies and their corresponding disc spaces were visualized. A needle was placed into the interspace to confirm placement of the operative interspace and we performed the remainder of procedure under microscopic visualization. Next, using bipolar and Bovie cautery to ensure meticulous hemostasis, the longus colli was mobilized bilaterally and retractors were placed deep to the longus colli bilaterally to address retraction. Next, we turned our attention to the radical anterior discectomy. This was performed at C4-C5 first by using a 15 blade scalpel followed by narrow pituitaries and a Microsect 5-B curette was used to denude the endplate of all cartilaginous tissue. Next, using a [employer] AM8 drill bit, the vertebral endplates were denuded in a pycu-gt-fadg and epzoh-ru-fbwil fashion, and ultimately the posterior uncinate joints bilaterally and posterior osteophytic lips and margins causing central and lateral impingement were carefully denuded until visualization of the posterior longitudinal ligament was possible. An endplate preparation was performed in the exact same fashion using an intervertebral medical office technology instructor, sequential distraction was obtained throughout the disc space. We saw a tear/rent in the PLL. This tear was in the shape of letter L and horizontal along midline raising to vertical approximately 10 to 15 degrees tear near the left neural foramina. This tear was probed with a Microsect-1B curette, which led to discovery of nuclear fragments posterior to the ligament and encroaching on the thecal sac and spinal cord primarily on the left side. This neural foraminal compression was carefully resected using a Kerrison-1 and Kerrison-2 rongeurs until complete decompression of the spinal cord was visualized and complete decompression of the neural foramina and nerve root therein as well as the axilla and lateral margin of the nerve root was visualized and subsequently completely decompressed. The family was notified at one-hour intervals throughout the procedure to provide for consistent updates. We next turned our attention towards trialing our implant within the disc space. We initially tried size 5 and afterwards size 6 trial from the [employer] system at this level, which appeared to be appropriate under AP and lateral fluoroscopy as well as in terms of its height, depth, width, and lack of toggle. The PEEK (polyetheretherketone) interbody cage was then packed with both allograft bone from Osteocel and local autograft bone matrix. Next, these were then carefully advanced and secured into their intervertebral spaces under direct visualization and with supervision of AP and lateral fluoroscopic views. We next turned our attention towards plating. Plating was performed with [employer] Interlock-C. A total of 3 screws, size 13 mm in length were inserted and confirmed under AP and lateral fluoroscopy and confirmed to be in excellent position. While performing our exposure at C4-C5, I noted at C5-C6, there to be some heterotropic bone, which may have been limiting some of the arthroplasty's range of motion, so with Midas Hank drill bit, I denuded all the overlying bone anterior to the arthroplasty and after this was performed, I sealed all the osseous surfaces with bone wax to prevent further ossification. After a finger sweep, we confirmed removal of all sponges. The retractor was removed and we next turned our attention to meticulous hemostasis with FloSeal and bipolar cautery. After the sponge and needle count was again found to be correct with our second count, we next turned our attention to closure. The wound was again copiously irrigated with antibiotic-impregnated saline. Closure consisted of 4-0 clear nylon for the platysma, and 6-0 clear nylon for the superficial skin. Final skin closure and dressings consisted of Dermabond. Prior to final closure, a final radiograph was obtained, which demonstrated the hardware was intact with excellent position throughout. The patient tolerated the procedure well. The patient was carefully extubated after the conclusion of surgery. We discussed the findings of the surgery with the family upon completion of the case. At this point, the patient was transferred to the spine floor for further observation. Liu Bro M.D. DR: JOSE JOB#: [id number] CC: PIPO
--- NOTE | 2020-01-27 16:31 | NUR ---
CASE MANAGEMENT:REVIEW 01/27/20 49 YR OLD MALE HERE FOR ELECTIVE SURGERY SI: NECK PAIN AND RADICULOPATHY 97.1 79 18 150/95 96% ON RA IS: TO SURGERY FOR ACDF C4-5 IV VANCOMYCIN Q12 IVF+KCL @100/HR IV DECADRON Q6HRS : TO MED/SURG 3 EAST POST OP
--- NOTE | 2020-01-27 17:45 | NUR ---
NURSE NOTES: PT d/c in stable condition, with vitals WNL, pt picked up by family member
[2020-01-27] MEDS ORDERED: Docusate 100mg cap ORAL SCH (18:00)
[2020-01-27] MEDS ORDERED: Vancomycin 1 GM in D5W 275 ML IVPB SCH (21:00)
--- NOTE | 2020-01-29 11:40 | Discharge Summary ---
Discharge Summary Discharge Summary _ DATE OF ADMISSION: 01/27/20 DATE OF DISCHARGE: 01/27/20 SURGEON: Dr. Liu Bro BRIEF HOSPITAL COURSE: Patient is a 49 y/o female, who has shistory of intractable neck pain, radiculopahty, herniation at C4-C5, neural foraminal stenosis at C4-C5, stenosis and history of priot C5-c6 artificail disc replacement and prior left humerus fracture. A course of conservative management was tried, but despite this course, there was still a significant component of persistent, recalcitrant neck pain and arm pain. The MRI demonstrated significant neural foraminal compromise secondary to disc herniation at C4-C5. She was admitted on 01/27/20 and underwent ACDF C4-C5. She tolerated procedure well. Surgery was uneventful. Post-operatively, patient was admitted for post-op care. She was placed on SCDs for DVT prophylaxis and was encouraged use of incentive spirometer. Patient was given pain management. She was seen by PT. Diet was advanced. Incision was clean, dry and intact. Patient was ambulating well with good pain control and was tolerating diet. Patient was eventually cleared for discharge home. FINAL DIAGNOSES: 1. Intractable neck pain. 2. Radiculopathy. 3. Herniation, C4-C5. 4. Neural foraminal stenosis, C4-C5. 5. Stenosis. 6. History of prior C5-C6 artificial disc replacement and prior left humerus fracture. PROCEDURE PERFORMED: 1. Anterior cervical discectomy and fusion of C4-C5 using NuVasive Cervical Interlock, size 6, three screws of 13 mm length, and 1 mL of Osteocel allograft bone. 2. Use of intraoperative microscope. 3. Motor evoked potential monitoring. 4. Somatosensory evoked potential monitoring. 5. Supervision and interpretation of fluoroscopy. 6. Takedown of heterotopic bone at C5-C6 artificial disc replacement. (Refer to Operative Report) DISCHARGE DISPOSITION: Patient was discharged home. DISCHARGE MEDICATIONS: Refer to Medication Reconciliation Sheet. DISCHARGE INSTRUCTIONS: Post-op instructions given. Follow-up in a week. I have been assigned to complete a DC summary on this account, I was not involved with the patient's management.--ARIAS Calvillo Jacqueline Robles NP Jan 29, 2020 11:40
== END 2020-01-27 17:43 | disposition home or self-care (01) | DRG 473 ==
LOC: SDSOVERFLO 05:14 → 3E 11:00
PROC: 0PB30ZZ Excision of Cervical Vertebra, Open Approach (ICD-10-PCS; principal; 2020-01-27 07:00)
PROC: 0RB30ZZ Excision of Cervical Vertebral Disc, Open Approach (ICD-10-PCS; principal; 2020-01-27 07:00)
PROC: 0RG10A0 Fusion of Cervical Vertebral Joint with Interbody Fusion Device, Anterior Approach, Anterior Column, Open Approach (ICD-10-PCS; principal; 2020-01-27 07:00)
DX: M50.121 Cervical disc disorder at C4-C5 level with radiculopathy (principal); M48.02 Spinal stenosis, cervical region; I10 Essential (primary) hypertension; F41.8 Other specified anxiety disorders; E78.00 Pure hypercholesterolemia, unspecified; G89.29 Other chronic pain; E11.9 Type 2 diabetes mellitus without complications; Z98.890 Other specified postprocedural states; M89.38 Hypertrophy of bone, other site
CPT/HCPCS: 36415; 72040; 76000; 82962; 86850; 86900; 86901; 87081; 94003; 94150; J2180; J2370; J2405; U0002